=== PATIENT | male | born 2000 | race Caucasian/White ===

== ENCOUNTER 2020-12-06 09:29 | Emergency (ER) | payer OTHER ==
[~2020-12-06] VITALS: Ht 172.7 cm; Wt 92.1 kg
[2020-12-06] MEDS ORDERED: ACET-897 PO (09:46)
[2020-12-06] MEDS ORDERED: ACETAMINOPHEN 500 MG TAB PO ONE (11:45)
[2020-12-06] MEDS ORDERED: IBUPROFEN 800 MG TAB PO ONE (11:45)
--- NOTE | 2020-12-06 11:56 | REP ---
INDICATION: likely covid, productive cough. COMPARISON: None. TECHNIQUE: SINGLE PORTABLE AP VIEW OF THE CHEST WAS PERFORMED. FINDINGS: THERE IS NO ACUTE INFILTRATE OR PULMONARY EDEMA. LUNGS ARE CLEAR. HEART IS NOT SIGNIFICANTLY ENLARGED. MEDIASTINAL SILHOUETTE IS UNREMARKABLE. THE VISUALIZED OSSEOUS STRUCTURES ARE INTACT. IMPRESSION: NO ACUTE PULMONARY DISEASE. <Electronically signed by Nitin Barragan > 12/06/20 1055
[2020-12-06] MEDS ORDERED: TESS100C PO (12:12)
[2020-12-06] MEDS ORDERED: MAGICMW SSP (12:12)
[2020-12-06 12:53] VITALS: BP 127/78
== END 2020-12-06 12:56 | disposition home or self-care (01) ==
LOC: M ED 09:29
DX: J06.9 Acute upper respiratory infection, unspecified (principal); B34.9 Viral infection, unspecified; R50.9 Fever, unspecified; M79.10 Myalgia, unspecified site